=== PATIENT | female | born 1955 | race Caucasian/White ===

== ENCOUNTER 2024-03-01 07:59 | Emergency (ER) | payer MEDICAID, SELFPAY ==
[2024-03-01] VITALS (13 sets, daily range): BP systolic 115–168; BP diastolic 67–83; PULSE 65–72; RESP 16; TEMP 36.6; O2SAT 94–100; BMI 24.4
--- NOTE | 2024-03-01 08:31 | CRLHL7_ITS ---
For Patients: As a result of the Century Cures Act, medical imaging exams and procedure reports are released immediately into your electronic medical record. You may view this report before your referring provider. If you have questions, please contact your health care provider. INDICATION: Shortness of breath TECHNIQUE: Two view chest. FINDINGS: The lungs are clear. The heart, mediastinum and pulmonary vessels are of normal size. There is no evidence of pleural disease. IMPRESSION: Negative chest. Dictated by Vanita Cobos MD @ 03/01/2024 8:58:21 AM (Electronically Signed)
--- NOTE | 2024-03-01 08:58 | ED.GENADULT ---
HPI - General Adult General Chief complaint: Chest Pain Stated complaint: chest pain Time Seen by Provider: 03/01/24 08:21 Source: patient Mode of arrival: ambulatory Limitations: no limitations History of Present Illness HPI narrative: 68-year-old female coming in today complaining of right-sided chest pain. Pain is been present for approximately 4 days, has worsened in the last 48 hours. Pain is located in the upper right chest. She also feels some discomfort that goes into the right neck and the right upper back. Movement does seem to make her pain worse. But, the pain is not associated with physical activity. When she walks for example, her pain does not get worse. She states that yesterday she perhaps felt a little short of breath with mild physical activity, although she feels her of whether she was actually short of breath or not. She complains of increased fatigue and decreased energy. She states that she walks daily will was unable to do that yesterday secondary to fatigue. She denies any fevers or chills. Appetite has been normal. She denies any abdominal discomfort, UTI symptoms, diarrhea or constipation. She denies any skin rashes. She denies any travel or long car rides. She denies coughing. She denies nausea or vomiting. Past medical history significant for hyperthyroidism, diabetes type 2. Patient takes metformin, Lantus, Jardiance, Trulicity for her diabetes. She is also on atorvastatin, daily iron, levothyroxine and omeprazole daily. She denies any history of coronary artery disease or blood clots. Past surgical history significant for hysterectomy, oophorectomy, cholecystectomy. Related Data Home Medications ?Medication ?Instructions ?Recorded ?Confirmed atorvastatin 40 mg tablet 40 mg PO DAILY 03/01/24 03/01/24 dulaglutide 3 mg/0.5 mL 3 mg subcut 03/01/24 subcutaneous pen injector (Trulicity) empagliflozin 25 mg tablet 25 mg PO DAILY 03/01/24 03/01/24 (Jardiance) ferrous sulfate 325 mg (65 mg 325 mg PO BID 03/01/24 03/01/24 iron) tablet (FeroSul) insulin glargine 100 unit/mL (3 13 unit subcut QPM 03/01/24 03/01/24 mL) subcutaneous pen (Lantus Solostar U-100 Insulin) levothyroxine 125 mcg tablet 125 mcg PO DAILY 03/01/24 03/01/24 metformin 500 mg tablet,extended 2,000 mg PO QPM 03/01/24 03/01/24 release 24 hr omeprazole 40 mg capsule,delayed 40 mg PO DAILY 03/01/24 03/01/24 release Allergies Allergy/AdvReac Type Severity Reaction Status Date / Time nitrofurantoin Allergy Verified 03/01/24 08:23 [From Macrobid] Penicillins Allergy Verified 03/01/24 08:23 Sulfa (Sulfonamide Allergy Verified 03/01/24 08:23 Antibiotics) Review of Systems Status of ROS: Reports: 10 or more systems reviewed and unremarkable except as noted in History and below [facility] Social History Smoking Status: Never smoker How often do you have a drink containing alcohol: 2-3 times a week AUDIT-C Alcohol total score: 3 Non-prescribed substance use: denies use Exam Narrative: Exam Narrative: Well-nourished well-developed patient in no acute distress. Alert and oriented. Answers questions appropriately. Mood and affect are appropriate. Thoughts are goal oriented and rational. No tangential or magical thinking noted. Patient speaks in full sentences without needing to catch her breath. HEENT: Normocephalic atraumatic. Pupils are equally round reactive to light. Extraocular muscles are intact. Conjunctivae are moist without any icterus noted. Moist mucous membranes. Posterior pharynx is normal. Neck is soft without any lymphadenopathy or thyromegaly. No masses are appreciated. Cardiovascular: Heart is regular rate and rhythm S1 and S2 are present without any murmurs. Lungs: Clear to auscultation on the left, she does have very mild rales in the mid right lung. Abdomen: Soft and nontender nondistended with normal bowel sounds. Extremities: Bilateral lower extremities are without edema. Normal DP and PT pulses. Skin: Well perfused without any obvious rashes. Const: Vital Signs, click to edit/add: Vital Signs - 24 hr 03/01/24 08:10 03/01/24 08:11 03/01/24 08:14 Temperature 97.8 F Pulse Rate 69 69 Pulse Rate [Left P ulse Oximeter] 66 Respiratory Rate 16 Blood Pressure 168/83 H Blood Pressure [Le ft Upper Arm] 166/83 H Pulse Oximetry 99 98 97 Oxygen Delivery Me thod Room Air 03/01/24 08:19 03/01/24 08:30 03/01/24 09:00 Temperature Pulse Rate 72 67 Pulse Rate [Left P ulse Oximeter] Respiratory Rate Blood Pressure Blood Pressure [Le ft Upper Arm] Pulse Oximetry 96 99 95 Oxygen Delivery Me thod 03/01/24 09:06 03/01/24 09:07 03/01/24 09:30 Temperature Pulse Rate 65 65 65 Pulse Rate [Left P ulse Oximeter] Respiratory Rate Blood Pressure 131/71 Blood Pressure [Le ft Upper Arm] Pulse Oximetry 97 98 94 Oxygen Delivery Me thod 03/01/24 09:32 Temperature Pulse Rate 65 Pulse Rate [Left P ulse Oximeter] Respiratory Rate Blood Pressure 125/70 Blood Pressure [Le ft Upper Arm] Pulse Oximetry 95 Oxygen Delivery Me thod Course Course ED Course: Chest x-ray, read by me, does not show any evidence of infection. EKG, read by me, shows normal sinus rhythm with a pulse of 74. CBC is unremarkable. Sodium minimally low at 133, otherwise chemistries unremarkable. Normal troponins. Normal LFTs. Triple swab is negative. D-dimer is normal. Vital Signs Vital signs: Initial Vital Signs Pulse Rate 69 03/01/24 08:10 Blood Pressure 168/83 H 03/01/24 08:10 Blood Pressure Mean 111 H 03/01/24 08:10 Pulse Oximetry 99 03/01/24 08:10 Vital Signs Pulse Rate 69 03/01/24 08:10 Blood Pressure 168/83 H 03/01/24 08:10 Pulse Oximetry 99 03/01/24 08:10 Temperature 97.8 F 03/01/24 08:14 Pulse Rate 65 03/01/24 09:32 Respiratory Rate 16 03/01/24 08:14 Blood Pressure 125/70 03/01/24 09:32 Pulse Oximetry 95 03/01/24 09:32 Oxygen Delivery Method Room Air 03/01/24 08:14 Medical Decision Making MDM Narrative Medical decision making narrative: 68-year-old female with right-sided chest discomfort. Unclear etiology at this time. We discussed muscle strain. I do think that given her history of diabetes that she would be a good candidate to do a stress test. Given that her discomfort comes and goes and is really not associated with physical activity, I do not think that this is an emergency that needs to get done right away. I encouraged her to follow up with her primary care provider. Lab Data Lab results reviewed: Yes I reviewed the patient's lab results Labs: Lab Results 03/01/24 Range/Units 09:05 WBC 9.37 (4.50-11.00) K/uL RBC 5.55 H (4.00-5.20) m/uL Hgb 15.0 (12.0-16.0) gm/dL Hct 46.7 (33.0-51.0) % MCV 84 (80-100) fL MCH 27 (26-34) pg MCHC 32 (32-36) gm/dL RDW Coeff of [place] 14.2 (11.5-15.5) % Plt Count 282 (140-440) K/uL Neut % (Auto) 68.0 (42.0-72.0) % Lymph % (Auto) 24.0 (20-44) % [place] % (Auto) 6.4 (0.0-11.0) % Eos % (Auto) 1.3 (0.0-7.0) % Baso % (Auto) 0.1 (0.0-3.0) % Neut # (Auto) 6.37 (1.7-7.0) K/uL Lymph # (Auto) 2.25 (0.90-2.90) K/uL [place] # (Auto) 0.60 (0.00-0.90) K/UL Eos # (Auto) 0.12 (0.00-0.50) K/uL Baso # (Auto) 0.01 (0.00-0.30) K/uL Abs Immat Gran (auto) 0.02 (0.00-0.30) K/uL Imm/Tot Granulo (auto) 0.2 % D-Dimer Quant (PE/DVT) < 0.27 (0.00-0.50) ug/ml Sodium 133 L (135-149) mmol/L Potassium 4.3 (3.6-5.1) mmol/L Chloride 98 (96-114) mmol/L Carbon Dioxide 27 (20-32) mmol/L Anion Gap 8 (7-15) mEq/L BUN 23 (7-30) mg/dL Creatinine 0.7 (0.5-1.5) mg/dL Estimated Creat Clear 46.50 Estimated GFR 94 ml/min Glucose 154 H (60-115) mg/dL Calcium 9.6 (8.4-10.6) mg/dL Total Bilirubin 0.3 (0.1-1.5) mg/dL Direct Bilirubin 0.2 (0.0-0.5) mg/dL AST 28 (12-35) U/L ALT 20 (4-35) U/L Alkaline Phosphatase 77 (40-150) U/L Troponin I < 0.01 L (0.01-0.04) ng/mL C-Reactive Protein < 0.5 L (0.5-1.0) mg/dL Total Protein 7.5 (6.0-8.3) g/dL Albumin 4.6 (3.3-5.0) g/dL SARS-CoV-2 (PCR) Negative SARS-CoV-2 (Negative) Influenza Type A (PCR) Negative PCR FLU A (Negative) Influenza Type B (PCR) Negative PCR FLU B (Negative) RSV (PCR) Negative PCR RSV (Negative) POC Troponin I 0.00 L (0.01-0.04) ng/ml Imaging Data Chest x-ray: Attestation: I have reviewed the pertinent imaging results. Radiologist's impression: Two view chest. FINDINGS: The lungs are clear. The heart, mediastinum and pulmonary vessels are of normal size. There is no evidence of pleural disease. IMPRESSION: Negative chest. ECG Data Attestation: I personally reviewed and interpreted this ECG as follows: Discharge Plan Discharge Clinical Impression: Atypical chest pain Patient Disposition: Home, Self-Care Condition: Stable Additional Instructions: Your workup today was unremarkable. There was no evidence of heart attack, blood clot, pneumonia or other life-threatening conditions. Chest pain can be caused by muscle strain, inflammation of the rib joints. However given her history of diabetes, I do think it is a good idea for you to schedule an outpatient stress test- this test will make sure that your heart is healthy. Recommend you follow-up with your primary care provider so that this can be scheduled. If you feel like you are getting worse, return to the ER. Prescriptions: No Action atorvastatin 40 mg tablet 40 mg PO DAILY omeprazole 40 mg capsule,delayed release(DR/EC) 40 mg PO DAILY ferrous sulfate [FeroSul] 325 mg (65 mg iron) tablet 325 mg PO BID levothyroxine 125 mcg tablet 125 mcg PO DAILY metformin 500 mg tablet extended release 24 hr 2,000 mg PO QPM insulin glargine [Lantus Solostar U-100 Insulin] 100 unit/mL (3 mL) insulin pen 13 unit subcut QPM Jardiance 25 mg tablet 25 mg PO DAILY Trulicity 3 mg/0.5 mL pen injector 3 mg subcut Follow Up/Referrals: Ebony Lincoln DO [Primary Care Provider] - [facility]one [facility]
[2024-03-01 09:18] LABS: Basophils Absolute Auto 0.01 K/uL (0.00-0.30); Basophils Percent Auto 0.1 % (0.0-3.0); Eosinophils Absolute Auto 0.12 K/uL (0.00-0.50); Eosinophils Percent Auto 1.3 % (0.0-7.0); Hematocrit 46.7 % (33.0-51.0); Immature Granulocytes Abs Auto 0.02 K/uL (0.00-0.30); Immature Granulocytes Pct Auto 0.2 %; Lymphocytes Absolute Auto 2.25 K/uL (0.90-2.90); Mean Corpuscular HGB Conc 32 gm/dL (32-36); Mean Corpuscular Hemoglobin 27 pg (26-34); Mean Corpuscular Volume 84 fL (80-100); Monocytes Percent Auto 6.4 % (0.0-11.0); Neutrophils Absolute Auto 6.37 K/uL (1.7-7.0); Platelet Count* 282 K/uL (140-440); RDW Coefficient of Variation % 14.2 % (11.5-15.5); Red Blood Count 5.55 m/uL (4.00-5.20); White Blood Count* 9.37 K/uL (4.50-11.00)
[2024-03-01 09:24] LABS: Slide Review Reflex No
[2024-03-01 09:27] LABS: Chloride* 98 mmol/L (96-114)
[2024-03-01 09:28] LABS: Albumin* 4.6 g/dL (3.3-5.0); Potassium* 4.3 mmol/L (3.6-5.1); Sodium* 133 mmol/L (135-149)
[2024-03-01 09:31] LABS: Alanine Aminotransferase* 20 U/L (4-35); Alkaline Phosphatase* 77 U/L (40-150); Anion Gap 8 mEq/L (7-15); Aspartate Amino Transferase* 28 U/L (12-35); Bilirubin Direct* 0.2 mg/dL (0.0-0.5); Bilirubin Total* 0.3 mg/dL (0.1-1.5); Blood Urea Nitrogen* 23 mg/dL (7-30); Calcium* 9.6 mg/dL (8.4-10.6); Carbon Dioxide* 27 mmol/L (20-32); Creatinine* 0.7 mg/dL (0.5-1.5); Estimated Glomerular Filt Rate 94 ml/min; Glucose* 154 mg/dL (60-115); Total Protein* 7.5 g/dL (6.0-8.3)
[2024-03-01 09:37] LABS: C Reactive Protein* < 0.5 mg/dL (0.5-1.0)
[2024-03-01 09:43] LABS: Troponin I* < 0.01 ng/mL (0.01-0.04)
[2024-03-01 09:52] LABS: PCR FLU A Negative PCR FLU A (Negative); PCR FLU B Negative PCR FLU B (Negative); PCR RSV Negative PCR RSV (Negative); SARS PCR* Negative SARS-CoV-2 (Negative)
[2024-03-01 10:13] LABS: D Dimer Quantitative* < 0.27 ug/ml (0.00-0.50)
== END 2024-03-01 10:30 | disposition home or self-care (01) ==
PROVIDERS: Emergency Provider Family Medicine; PCP Family Medicine
DX: R07.89 Other chest pain (principal)
CPT/HCPCS: 36415; 71046; 80048; 80076; 84484; 85025; 85379; 86140; 87631; 93005; 94761; 99284; 99285